=== PATIENT | female | born 1985 | race Caucasian/White ===

== ENCOUNTER 2017-12-17 14:12 | Emergency (ER) | payer OTHER ==
[~2017-12-17] VITALS: Ht 182.9 cm; Wt 202.3 kg
[~2017-12-17 14:12] MED LIST: AMOXICILLIN500 M3 PO; FLEXERIL10 MG PO; LOVENOX 4040 MG/0.4 SC; MEDROL DOSEPAK1 PAC PO; MOTRIN 600 MG600 MG PO; NAPROSYN 500 M500 MG PO; OMEPRAZOLE40 M1; ONDANSETRON ODT8 M1 PO; PERCOCET 325 MG1 TA2 PO; PERCOCET 5-3251 EACH PO
--- NOTE | 2017-12-17 14:47 | ED NECK/BACK PAIN COMPLAINT ---
History of Present Illness General Chief Complaint: Low Back Pain/Injury Stated Complaint: LOWER BACK PAIN ON LEFT SIDE Source: patient, old records Exam Limitations: no limitations Vital Signs & Intake/Output Vital Signs & Intake/Output Vital Signs Date Time Temp Pulse Resp B/P B/P Pulse O2 O2 Flow FiO2 Mean Ox Delivery Rate 12/17 1807 97.4 74 18 146/75 100 Room Air 12/17 1647 97.1 78 18 177/96 98 12/17 1449 Room Air 12/17 1420 97.6 87 15 136/80 96 Room Air Room Air Allergies Coded Allergies: diphenhydramine (From BENADRYL) (Intermediate, SWELLING 12/17/17) Reconcile Medications Cyclobenzaprine HCl 10 MG TABLET 1 TAB PO BID PRN pain Tylenol With Codeine (Tylenol With Codeine #3 Tablet) 300 MG-30 MG TABLET 1 TAB PO BIDP PRN pain Triage Note: PT TO ED FOR C/C OF L MID/LOWER BACK PAIN THAT RADIATES INTO ABD. DENIES S/S. +NAUSEA FROM PAIN YESTERDAY. Triage Nurses Notes Reviewed? yes Onset: Abrupt Duration: day(s):, constant Timing: recent history Quality/Severity: moderate (ACHING) Location: paraspinous muscles Radiation: ABD Modifying Factors: rest Associated Symptoms: NAUSEA : No Patient currently breastfeeds: No HPI: 32-year-old female history of non-Hodgkin's lymphoma presents to ER for evaluation complaining of left flank and left lower back pain that's been present for the past few days associated with nausea. The pain radiates to her left lower quadrant. She has a history of kidney stones when she was younger and states that this feels similar. No vomiting. She denies any urinary urgency frequency dysuria hematuria. Her last menstrual cycle was 3 weeks ago. She denies any right-sided abdominal pain. While I was talking with the patient she developed sudden onset of left-sided chest pain that lasted for approximately 30 seconds and resolved on its own. There was no associated shortness of breath and there is no associated shortness of breath at this time with her pain in her lower back. No cough no hemoptysis fever chills She just returned to work after being out for her treatment for her lymphoma she denies any heavy lifting fall or trauma. She is not currently undergoing any chemotherapy (Dominick CHINRitesh) Past History Travel History Traveled to [place] past 21 day No Medical History Any Pertinent Medical History? see below for history Neurological: NONE EENT: NONE Cardiovascular: NONE Respiratory: NONE Gastrointestinal: NONE Hepatic: NONE Renal: NONE Musculoskeletal: NONE Psychiatric: NONE Endocrine: NONE Blood Disorders: NONE Cancer(s): hodgkins lymphoma [employer] FABRICATING/Reproductive: NONE Surgical History Surgical History: cholecystectomy, , left IJ port Psychosocial History What is your primary language Setswana Tobacco Use: Quit >30 days ago ETOH Use: denies use Illicit Drug Use: denies illicit drug use Family History Hx Contributory? No (Ritesh Gudino) Review of Systems Review of Systems Constitutional: Reports: see HPI. Comments Review of systems: See HPI, All other systems negative. Constitutional, no chills no fever, HEENT: no sore throat no congestion, no ear pain Cardiovascular: No chest pain , no palpitation Skin: no rashes, no change in skin Respiratory: No dyspnea no cough no sputum GI: No nausea no vomiting, no diarrhea, no bloating/constipation : No dysuria No hematuria, no frequency Muscle skeletal: No joint pain, no back pain, no neck pain, Neurologic: , no headache Psych: No stress Heme/endocrine: No bruising Immunology: No lymphadenopathy (Ritesh Gudino) Physical Exam Physical Exam General Appearance: well developed/nourished, alert, awake Neck: normal inspection, supple Comments: Well-developed well-nourished person in no acute distress HEENT: Normal EENT exam; PERRL, EOMI, HEAD is atraumatic. moist mucous membranes. Neck: Supple, normal range of motion Back: No midline tenderness there is left sided paralumbar muscle tenderness on palpation, no CVA tenderness. Full range of motion Cardiovascular: Regular rate and rhythms no murmurs rubs or gallops, normal JVP Respiratory: Chest nontender.There were no bony deformities, no asymmetry. No respiratory distress. Patient speaking in full complete sentences. Breath sounds clear to auscultation bilaterally: NO W/R/R Abdomen: Soft, Obese, nontender nondistended, no appreciable organomegaly. Normal bowel sounds. No rebound/guarding Extremity: No edema, full range of motion of extremities, Neuro: Alert oriented x3, motor sensory normal, There were no obvious focal neurologic abnormalities. Skin: No appreciable rash on exposed skin, skin is warm and dry. Psych: Mood and affect is normal, memory and judgment is normal. Core Measures CVA/TIA Diagnosis: No (Dominick CHIN,Ritesh) Progress Differential Diagnosis: cauda equina syn, herniated disc, pyelo/UTI, ureterolithiasis Plan of Care: Orders Procedure Date/time Status URINE 12/17 1445 Complete URINALYSIS 12/17 1445 Complete TROPONIN LEVEL 12/17 1445 Complete HUMAN BETA HCG SCREEN 12/17 1445 Complete COMPREHENSIVE METABOLIC PANEL 12/17 1445 Complete CBC WITHOUT DIFFERENTIAL 12/17 1445 Complete EKG 12/17 143 Active Current Medications Sig/Lina Start time Last Medication Dose Stop Time Status Admin Ketorolac 30 MG ONCE ONE 12/17 1444 CAN Tromethamine 12/17 1445 (Toradol) Laboratory Tests 12/17/17 1540: Urine Color YEL, Urine Clarity CLEAR, Urine pH 5.5, Ur Specific Ald[place] >= 1.030 , Urine Protein TRACE H, Urine Ketones TRACE H, Urine Nitrite NEG, Urine Bilirubin NEG, Urine Urobilinogen 0.2, Ur Leukocyte Esterase NEG, Ur Microscopic SEDIMENT EXAMINED, Urine RBC 1-3, Urine WBC 3-5 H, Ur Epithelial Cells FEW, Urine Crystals RARE CA OX, Urine Bacteria RARE H, Urine Hemoglobin NEG, Urine Glucose NEG, Urine Test NEGATIVE 12/17/17 1508: Anion Gap 15, Estimated GFR > 60, BUN/Creatinine Ratio 16.3, Glucose 87, Calcium 9.6, Total Bilirubin 1.0, AST 49 H, ALT 61 H, Alkaline Phosphatase 65, Troponin I < 0.01, Total Protein 7.9, Albumin 4.2, Globulin 3.7, Albumin/ Globulin Ratio 1.1, Total Beta HCG NEGATIVE, CBC w Diff NO MAN DIFF REQ, RBC 4.89, MCV 84.3, MCH 27.9, MCHC 33.0, RDW 15.9 H, MPV 9.4, Gran % 69.8, Lymphocytes % 22.0, Monocytes % 4.9, Eosinophils % 2.6, Basophils % 0.7, Absolute Granulocytes 5.1, Absolute Lymphocytes 1.6, Absolute Monocytes 0.4, Absolute Eosinophils 0.2, Absolute Basophils 0.1 Labs ordered old records reviewed patient medicated with Toradol CAT scan ordered 12/17/2017 3:45:09 PM patient resting in no acute distress on repeat evaluation pending labs Repeat evaluation patient resting in no acute distress pending CAT scan x-ray results were discussed with her however at length all of her lab results to date I discussed with the patient at length all of their results. I had an extensive conversation regarding need for close follow up with their primary care physician this week as well as return precautions. I answered all of their questions, they feel comfortable with the plan and follow-up care. I discussed with the patient/family the medications that they will receive. I gave them signs and symptoms that could indicate an adverse reaction. I have advised them to limit their activities until they can see how they respond to the medication. Diagnostic Imaging: Viewed by Me: Radiology Read, CT Scan. Discussed w/RAD: Radiology Read. Radiology Impression: PATIENT: JOVANNY GARNICA PRESENT AGE: 32 PATIENT ACCOUNT NO: [id number] : 84 LOCATION: [facility] ORDERING PHYSICIAN: Ritesh CHIN SERVICE DATE: 12/17/17 EXAM TYPE: RAD - XRY-PORTABLE CHEST XRAY EXAMINATION: XR PORTABLE CHEST CLINICAL INFORMATION: Lower back pain COMPARISON: 11/03/2017 TECHNIQUE: Portable frontal view of the chest was obtained. FINDINGS: No significant abnormality is noted involving the heart, lungs, mediastinum, bony thorax or soft tissues. IMPRESSION : Unremarkable examination. DICTATED BY: Fabian Birch MD DATE/TIME DICTATED:1742 PLATE AND FRAME FILTER OPERATOR:MINNIE DATE/TIME TRANSCRIBED:12/17/171742 CONFIDENTIAL, DO NOT COPY WITHOUT APPROPRIATE AUTHORIZATION. <Electronically signed in Other Vendor System> SIGNED BY: Fabian Birch MD 12/17/171745, PATIENT: JOVANNY GARNICA PRESENT AGE: 32 PATIENT ACCOUNT NO: [id number] : 84 LOCATION: [facility] ORDERING PHYSICIAN: Ritesh CHIN SERVICE DATE: 12/17/17 EXAM TYPE: CAT - CT ABD & PELVIS W/O IV CONTRAS EXAMINATION: CT ABDOMEN AND PELVIS WITHOUT CONTRAST CLINICAL INFORMATION : Kidney stone. Left flank pain. COMPARISON: CT abdomen pelvis dated 11/03/2017. TECHNIQUE: Multidetector volumetric imaging was performed from the superior aspect of the liver through the pubic symphysis. Sagittal and coronal reformatted images were obtained on the technologist's workstation. DLP: 1618.94 mGy-cm FINDINGS: LUNG BASES: The visualized lung bases are unremarkable. LIVER, GALLBLADDER, AND BILIARY TREE: The liver is enlarged measuring up to 27 cm in craniocaudal dimension. No focal hepatic lesion. The gallbladder is surgically absent. No intrahepatic or extrahepatic biliary ductal dilation. PANCREAS: The pancreas is atrophic and largely fatty replaced. SPLEEN: The spleen is enlarged measuring 14 cm in craniocaudal dimension. ADRENAL GLANDS: Unremarkable. KIDNEYS AND URETERS: The kidneys are normal in size, shape, and attenuation. No hydronephrosis, hydroureter, or calculi seen. No perinephric stranding. BLADDER: Unremarkable. GASTROINTESTINAL TRACT: The small and large bowel are unremarkable. The appendix is unremarkable. ABDOMINAL WALL: Small fat-containing umbilical hernia. LYMPH NODES: No lymphadenopathy. VASCULAR: No aortic aneurysm. PELVIC VISCERA: No adnexal mass. OSSEOUS STRUCTURES: Degenerative changes of the thoracolumbar spine. IMPRESSION: 1. No renal, ureteric or urinary bladder calculus. 2. Hepatosplenomegaly. DICTATED BY: Lance Can MD DATE/TIME DICTATED:12/17/171641 PLATE AND FRAME FILTER OPERATOR:MINNIE DATE/TIME TRANSCRIBED:1641 CONFIDENTIAL, DO NOT COPY WITHOUT APPROPRIATE AUTHORIZATION. < Electronically signed in Other Vendor System> SIGNED BY: Lance Can MD 12/17/171653 Initial ED EKG: normal intervals, normal p-waves, normal QRS complex, normal sinus rhythm Prior EKG: unchanged Rhythm Strip: normal sinus rhythm (Ritesh Gudino) Departure Departure Time of Disposition: 1809 Disposition: HOME OR SELF CARE Condition: Stable Clinical Impression Primary Impression: Back pain Referrals: Alan Jason DO (PCP/Family) Additional Instructions: Follow-up with your primary care physician on Wednesday. Flexeril as directed this is a muscle relaxer may make you drowsy. Tylenol codeine as directed no driving while taking this medication. Return to the ER anytime sooner if her symptoms worsen or have any other concerns Departure Forms: Customer Survey General Discharge Information Prescriptions: Current Visit Scripts Cyclobenzaprine HCl 1 TAB PO BID PRN pain #12 TAB Tylenol With Codeine (Tylenol With Codeine #3 Tablet) 1 TAB PO BIDP PRN pain #10 TAB (Dominick CHIN,Ritesh) PA/SCREW MACHINE SET UP OPERATOR Co-Sign Statement Statement: ED Attending supervision documentation- I saw and evaluated the patient. I have also reviewed all the pertinent lab results and diagnostic results. I agree with the findings and the plan of care as documented in the PA's/SCREW MACHINE SET UP OPERATOR's documentation. x I have reviewed the ED Record and agree with the PA's/SCREW MACHINE SET UP OPERATOR's documentation. [] Additions or exceptions (if any) to the PAs/SCREW MACHINE SET UP OPERATOR's note and plan are summarized below: [] (Bj SHARIF,Tj)
[2017-12-17 15:52] LABS: ABSOLUTE BASOPHIL COUNT 0.1 /CUMM (0.0-0.2); ABSOLUTE EOSINOPHIL COUNT 0.2 /CUMM (0.0-0.7); ABSOLUTE GRANULOCYTE CT 5.1 /CUMM (1.4-6.5); ABSOLUTE LYMPH COUNT 1.6 /CUMM (1.2-3.4); ABSOLUTE MONOCYTE COUNT 0.4 /CUMM (0.10-0.60); BASOPHIL % 0.7 % (0.0-2.0); EOSINOPHIL % 2.6 % (0-5); GRANULOCYTE % 69.8 % (42.2-75.2); HEMATOCRIT 41.2 % (37-47); MEAN CORPUSCULAR HGB 27.9 PG (27.0-31.0); MEAN CORPUSCULAR VOLUME 84.3 FL (81.0-99.0); MEAN PLATELET VOLUME 9.4 FL (7.4-10.4); PLATELET COUNT 248 /CUMM (130-400); RBC DISTRIBUTION WIDTH 15.9 % (11.5-14.5); RED BLOOD CELL CT 4.89 /CUMM (4.20-5.40); WHITE BLOOD CELL COUNT 7.2 /CUMM (4.8-10.8)
--- NOTE | 2017-12-17 16:54 | CT SCAN REPORT ---
EXAMINATION: CT ABDOMEN AND PELVIS WITHOUT CONTRAST CLINICAL INFORMATION: Kidney stone. Left flank pain. COMPARISON: CT abdomen pelvis dated 11/03/2017. TECHNIQUE: Multidetector volumetric imaging was performed from the superior aspect of the liver through the pubic symphysis. Sagittal and coronal reformatted images were obtained on the technologist's workstation. DLP: 1618.94 mGy-cm FINDINGS: LUNG BASES: The visualized lung bases are unremarkable. LIVER, GALLBLADDER, AND BILIARY TREE: The liver is enlarged measuring up to 27 cm in craniocaudal dimension. No focal hepatic lesion. The gallbladder is surgically absent. No intrahepatic or extrahepatic biliary ductal dilation. PANCREAS: The pancreas is atrophic and largely fatty replaced. SPLEEN: The spleen is enlarged measuring 14 cm in craniocaudal dimension. ADRENAL GLANDS: Unremarkable. KIDNEYS AND URETERS: The kidneys are normal in size, shape, and attenuation. No hydronephrosis, hydroureter, or calculi seen. No perinephric stranding. BLADDER: Unremarkable. GASTROINTESTINAL TRACT: The small and large bowel are unremarkable. The appendix is unremarkable. ABDOMINAL WALL: Small fat-containing umbilical hernia. LYMPH NODES: No lymphadenopathy. VASCULAR: No aortic aneurysm. PELVIC VISCERA: No adnexal mass. OSSEOUS STRUCTURES: Degenerative changes of the thoracolumbar spine. IMPRESSION: 1. No renal, ureteric or urinary bladder calculus. 2. Hepatosplenomegaly.
[2017-12-17] MEDS ORDERED: TYLENOL WITH C1 EACH PO (17:40)
[2017-12-17] MEDS ORDERED: CYCLOBENZAPRINE10 M1 PO (17:40)
--- NOTE | 2017-12-17 17:46 | RADIOLOGY REPORT ---
EXAMINATION: XR PORTABLE CHEST CLINICAL INFORMATION: Lower back pain COMPARISON: 11/03/2017 TECHNIQUE: Portable frontal view of the chest was obtained. FINDINGS: No significant abnormality is noted involving the heart, lungs, mediastinum, bony thorax or soft tissues. IMPRESSION: Unremarkable examination.
[2017-12-17 18:07] VITALS: BP 146/75
[2017-12-19] MEDS ORDERED: PERCOCET 5-3251 EACH PO (15:49)
[2017-12-19] MEDS ORDERED: MOBIC15 M1 PO (15:49)
== END 2017-12-17 18:09 ==
LOC: ERH 14:12
PROVIDERS: Physician Assistant Medical
DX: M54.5 Low back pain (principal)
CPT/HCPCS: 71045; 74176; 81001; 81025; 93005; 93010; 96372; J1885